=== PATIENT | female | born 1950 | race Caucasian/White ===

== ENCOUNTER → 2016-07-21 | Outpatient (CLI) | payer MEDICARE | LOC: COL.RAD 08:43 | DX: M54.5 Low back pain (principal) | CPT/HCPCS: J3301; Q9967 ==

== ENCOUNTER → 2016-08-11 | Outpatient (CLI) | payer MEDICARE | LOC: COL.RAD 07:58 | DX: M79.645 Pain in left finger(s) (principal); M18.9 Osteoarthritis of first carpometacarpal joint, unspecified | CPT/HCPCS: J3301; Q9967 ==

== ENCOUNTER → 2016-09-11 | Outpatient (CLI) | payer MEDICARE ==
[2016-09-11 16:38] LABS: HIV 1/2 Antibodies Non-Reactive; HIV-1p24 Antigen Non-Reactive
== END ==
LOC: COL.LAB 11:40
PROVIDERS: Orthopaedic Surgery
DX: Z01.812 Encounter for preprocedural laboratory examination (principal); M25.862 Other specified joint disorders, left knee

== ENCOUNTER → 2016-11-02 | Outpatient (CLI) | payer MEDICARE | LOC: COL.RAD 08:00 | DX: M79.652 Pain in left thigh (principal); M79.651 Pain in right thigh | CPT/HCPCS: J3301; Q9967 ==

== ENCOUNTER → 2016-12-11 | Outpatient (CLI) | payer MEDICARE | LOC: COL.RAD 11:30 | DX: M79.645 Pain in left finger(s) (principal) | CPT/HCPCS: J3301; Q9967 ==

== ENCOUNTER → 2016-12-14 | Outpatient (CLI) | payer MEDICARE | LOC: MC.RAD 10:39 | DX: Z12.31 Encounter for screening mammogram for malignant neoplasm of breast (principal) ==

== ENCOUNTER → 2017-03-18 | Outpatient (CLI) | payer MEDICARE | LOC: COL.RAD 10:47 | DX: M79.645 Pain in left finger(s) (principal); M79.651 Pain in right thigh | CPT/HCPCS: J3301; Q9967 ==

== ENCOUNTER → 2017-07-14 | Outpatient (CLI) | payer MEDICARE | LOC: COL.RAD 09:30 | DX: M79.645 Pain in left finger(s) (principal); M79.651 Pain in right thigh; M79.652 Pain in left thigh | CPT/HCPCS: J3301; Q9967 ==

== ENCOUNTER → 2017-11-08 | Outpatient (CLI) | payer MEDICARE | LOC: COL.RAD 10-26 11:30 | DX: M79.651 Pain in right thigh (principal) | CPT/HCPCS: J3301; Q9967 ==

== ENCOUNTER → 2018-02-22 | Outpatient (CLI) | payer MEDICARE | LOC: MC.RAD 11:20 | DX: Z12.31 Encounter for screening mammogram for malignant neoplasm of breast (principal) ==

== ENCOUNTER → 2018-03-02 | Outpatient (CLI) | payer MEDICARE | LOC: COL.RAD 07:55 | DX: M18.12 Unilateral primary osteoarthritis of first carpometacarpal joint, left hand (principal) | CPT/HCPCS: J3301; Q9967 ==

== ENCOUNTER 2018-03-18 11:44 | Emergency (ER) | payer MEDICARE ==
[~2018-03-18] VITALS: Ht 162.6 cm; Wt 111.4 kg
[2018-03-18 11:51] VITALS: BP 139/85; TEMP 97.4
[2018-03-18 12:07] LABS: BASO # 0.1 (0.0-0.2); BASO % 0.6 % (0.0-2.0); EOS # 0.3 (0.0-0.7); EOS % 3.2 % (0-4.0); GRAN # 6.3 (1.4-6.5); GRAN % 66.5 % (42.2-75.2); HEMATOCRIT 42.1 % (37.0-47.0); HEMOGLOBIN 13.9 g/dl (12.5-16.0); LYMPH # 1.9 (1.2-3.4); LYMPH % 20.5 % (20.0-51.0); MEAN CELL VOLUME 90 fl (80.0-100.0); MEAN CORPUSCULAR HEMOGLOBIN 30 pg (27.0-31.0); MEAN CORPUSCULAR HGB CONC 33 g/dl (33.0-37.0); MEAN PLATELET VOLUME 9.7 fl (7.4-10.4); MONO # 0.8 (0.1-0.6); MONO % 8.8 % (1.7-9.3); PLATELET COUNT 268 K/mm3 (130-400); RED BLOOD COUNT 4.69 M/mm3 (4.10-5.30); REDCELL DISTRIBUTION WIDTH-CV 13.5 % (11.5-14.5)
[2018-03-18 12:17] LABS: ALANINE AMINOTRANSFERASE 36 U/L (9-52); ALKALINE PHOSPHATASE 106 U/L (50-136); ANION GAP 9 mmol/L (7-16); AST,SGOT 22 U/L (15-37); BILIRUBIN,TOTAL 0.3 mg/dL (0.0-1.0); BLOOD UREA NITROGEN 22 mg/dL (7-17); CALCIUM 9.4 mg/dL (8.4-10.2); CARBON DIOXIDE 29 mmol/L (22-30); CHLORIDE 100 mmol/L (98-107); CREATININE, serum 0.61 mg/dL (0.52-1.25); GLUCOSE 92 mg/dL (74-106); INR 0.9 (0.8-3.0); PROTHROMBIN TIME 10.7 SECONDS (9.7-12.8); SODIUM 138 mmol/L (137-145); TOTAL PROTEIN 7.7 gm/dL (6.4-8.2)
[2018-03-18 12:20] LABS: PARTIAL THROMBOPLASTIN TIME 31.9 SECONDS (26.0-37.0)
[2018-03-18] MEDS ORDERED: SYNTHROID0.075 MG/T PO (12:20)
[2018-03-18 12:36] LABS: TROPONIN-I < 0.012 ng/mL (0.000-0.034)
[2018-03-18] MEDS ORDERED: CELEBREX400 MG PO (12:36)
[2018-03-18] MEDS ORDERED: GLUCOPHAGE XR500 M1 PO (12:36)
[2018-03-18] MEDS ORDERED: PROZAC40 MG PO (12:36)
[2018-03-18 14:21] VITALS: PULSE 77
== END 2018-03-18 14:21 | disposition home or self-care (01) ==
LOC: COL.ER 11:44
PROVIDERS: Family Medicine
DX: R07.89 Other chest pain (principal); E11.9 Type 2 diabetes mellitus without complications; I10 Essential (primary) hypertension; Z79.84 Long term (current) use of oral hypoglycemic drugs; Z87.891 Personal history of nicotine dependence

== ENCOUNTER → 2018-07-21 | Outpatient (REF) ==
[~2018-07-21] MED LIST: CELEBREX400 MG PO; GLUCOPHAGE XR500 M1 PO; PROZAC40 MG PO; SYNTHROID0.075 MG/T PO
[2018-07-21 14:22] LABS: HIV 1/2 Antibodies Non-Reactive; HIV-1p24 Antigen Non-Reactive
[2018-07-22 00:44] LABS: HEPATITIS B SURFACE ANTIBODY <2.0 (()); HEPATITIS B SURFACE ANTIGEN Negative (Negative); HEPATITIS C VIRUS ANTIBODY Negative (Negative)
== END ==
LOC: ZMSC 13:44
PROVIDERS: Orthopaedic Surgery
DX: Z01.89 Encounter for other specified special examinations (principal)

== ENCOUNTER → 2019-03-02 | Outpatient (CLI) | payer MEDICARE | LOC: MC.RAD 11:15 | DX: Z12.31 Encounter for screening mammogram for malignant neoplasm of breast (principal) ==

== ENCOUNTER 2021-04-03 19:20 | Emergency (ER) | payer MEDICARE ==
[~2021-04-03] VITALS: Ht 162.6 cm; Wt 110.5 kg
[2021-04-03 19:20] VITALS: TEMP 97.4
[2021-04-03 19:45] LABS: BASO # 0.1 K/mm3 (0.0-0.2); BASO % 0.9 % (0.0-2.0); EOS # 0.3 K/mm3 (0.0-0.7); EOS % 3.1 % (0-4.0); GRAN # 5.8 K/mm3 (1.4-6.5); GRAN % 62.2 % (42.2-75.2); HEMATOCRIT 38.7 % (37.0-47.0); HEMOGLOBIN 12.6 g/dl (12.5-16.0); LYMPH # 2.4 K/mm3 (1.2-3.4); LYMPH % 25.5 % (20.0-51.0); MEAN CELL VOLUME 93 fl (80.0-100.0); MEAN CORPUSCULAR HEMOGLOBIN 30 pg (27.0-31.0); MEAN CORPUSCULAR HGB CONC 33 g/dl (33.0-37.0); MEAN PLATELET VOLUME 10.4 fl (7.4-10.4); MONO # 0.7 K/mm3 (0.1-0.6); MONO % 7.9 % (1.7-9.3); PLATELET COUNT 262 K/mm3 (130-400); RED BLOOD COUNT 4.15 M/mm3 (4.10-5.30); REDCELL DISTRIBUTION WIDTH-CV 13.3 % (11.5-14.5)
[2021-04-03 20:11] LABS: ALANINE AMINOTRANSFERASE 15 U/L (0-55); ALBUMIN 3.5 gm/dL (3.4-4.8); ALKALINE PHOSPHATASE 86 U/L (0-750); ANION GAP 12 mmol/L (7-16); AST,SGOT 16 U/L (5-34); BILIRUBIN,TOTAL 0.2 mg/dL (0.2-1.2); BLOOD UREA NITROGEN 22 mg/dL (10-20); CALCIUM 9.3 mg/dL (8.4-10.2); CARBON DIOXIDE 25 mmol/L (23-31); CHLORIDE 105 mmol/L (98-107); CREATININE, serum 0.69 mg/dL (0.57-1.11); GLUCOSE 123 mg/dL (70-99); SODIUM 142 mmol/L (136-145); TOTAL PROTEIN 7.1 gm/dL (6.2-8.1)
[2021-04-03 20:21] LABS: TROPONIN-I < 0.010 ng/mL (0.00-0.033)
[2021-04-03] MEDS ORDERED: ZOFRAN ODT4 MG PO (20:40)
[2021-04-03] MEDS ORDERED: ANTIVERT 25MG25 MG PO (20:40)
[2021-04-03 21:07] VITALS: BP 125/76; PULSE 84
== END 2021-04-03 21:14 | disposition home or self-care (01) ==
LOC: COL.ER 19:20
PROVIDERS: Emergency Medicine
DX: R42 Dizziness and giddiness (principal); E03.9 Hypothyroidism, unspecified; Z79.890 Hormone replacement therapy
CPT/HCPCS: J2550; J7030

== ENCOUNTER → 2021-12-02 | Outpatient (CLI) | payer MEDICARE ==
[~2021-12-02] MED LIST changes: +ANTIVERT 25MG25 MG PO; +ZOFRAN ODT4 MG PO
== END ==
LOC: COL.RAD 11:55
DX: G31.9 Degenerative disease of nervous system, unspecified (principal)

== ENCOUNTER → 2021-12-17 | Outpatient (CLI) | payer MEDICARE | LOC: COL.RAD 13:30 | DX: M25.552 Pain in left hip (principal) | CPT/HCPCS: J3301; Q9967 ==

== ENCOUNTER → 2022-03-11 | Outpatient (CLI) | payer MEDICARE | LOC: COL.RAD 10:24 | DX: M25.552 Pain in left hip (principal) | CPT/HCPCS: J3301; Q9967 ==

== ENCOUNTER → 2022-11-04 | Outpatient (CLI) | payer MEDICARE ==
[~2022-11-04] MED LIST changes: +ASPIRIN 32325 MG/TAB PO; +BENTYL 10MG10 MG/CAP PO; +CEPHALEXIN500 M1 PO; +COLACE 100100 MG/CAP PO; +CYMBALTA 60MG60 MG PO; +DURICEF 500MG500 MG PO; +MOBIC15 MG PO; +NORCO 325 MG-51 TAB PO; +PRINIVIL10 MG PO; +SENOKOT S 50 MG1 TAB PO; +TYLENOL 500MG500 MG PO; +TYLENOL 8 HR PO; +ULTRAM ER100 MG PO; +VANCOMYCIN 11 G/VIA1 IV; +WELLBUTRIN XL150 MG PO; +ZOFRAN 4MG T4 MG/TAB PO; +ZYRTEC 10MG10 MG PO
[2022-11-04 12:59] LABS: HEMOGLOBIN 10.9 g/dl (12.5-16.0); MEAN CELL VOLUME 92 fl (80.0-100.0); MEAN CORPUSCULAR HEMOGLOBIN 31 pg (27-31); MEAN CORPUSCULAR HGB CONC 33 g/dl (33.0-37.0); MEAN PLATELET VOLUME 8.7 fl (7.4-10.4); PLATELET COUNT 611 K/mm3 (130-400); RED BLOOD COUNT 3.55 M/mm3 (4.10-5.30); REDCELL DISTRIBUTION WIDTH-CV 13.8 % (11.5-14.5)
[2022-11-04 13:07] LABS: HEMATOCRIT 32.8 % (37.0-47.0)
[2022-11-04 13:22] LABS: EOSINOPHIL 3 % (0-4); LYMPHOCYTE 30 % (20.0-51.0); NEUTROPHILS 61 % (42.0-75.2)
[2022-11-04 13:23] LABS: PLATELET ESTIMATE INCREASED (NORMAL)
[2022-11-04 13:54] LABS: ERYTHROCYTE SEDIMENTATION RATE > 140 mm/hr (0-30)
== END ==
LOC: COL.LAB 12:22
PROVIDERS: Orthopaedic Surgery Sports Medicine
DX: Z11.9 Encounter for screening for infectious and parasitic diseases, unspecified (principal)

== ENCOUNTER 2022-11-10 09:44 | Inpatient (IN) | payer MEDICARE ==
[~2022-11-10] VITALS: Ht 162.6 cm; Wt 104.6 kg
--- NOTE | 2022-11-10 09:49 | NUR ---
New pt arriving from surgical unit. She is a/o x 4. Left hip bulky dressing is CDI. Pt has PICC line in RUE that is flushing well with noted blood return. All other skin is intact. Orientation provided to unit/room. Call light is in her reach. Bed alarm is on.
--- NOTE | 2022-11-10 11:46 | NUR ---
Call placed to [facility] re: left hip dressing change orders. Awaiting callback.
--- NOTE | 2022-11-10 15:31 | NUR ---
Pt lying supine in bed w/ HOB elevated approx 45 degrees. LLE elevated on pillow with ice pack over hip incision. Pt reporting pain level 4/10. Too soon for next dose of PRN oxycodone. Tylenol given per PRN order. Call back received from Florentin Burnett ([facility]) - okay to remove bulky dressing, replace xeroform over tammie, okay to apply 4x4's to absorb any drainage. Okay to change every 3 days or PRN drainage.
--- NOTE | 2022-11-10 15:52 | NUR ---
Dressing change completed. Scant amt of serosaing drainage noted on 4x4's removed from incision. Incision well-approximated w/ sutures and was w/o redness or active drainage.
--- NOTE | 2022-11-10 16:37 | NUR ---
Has lack of transportation kept you from medical appts, meetings, work, or from getting things needed for daily living? YES-MEDICAL APPTS How often do you feel lonely or isolated from those around you? SOMETIMES Over the past 5 days, how much of the time has pain made it hard for you to sleep? OCCASIONALLY Over the past 5 days, how often have you limited your participation in therapy due to pain? FREQUENTLY Over the past 5 days, how often have you limited your day-to-day activities because of pain? OCCASIONALLY Have you had 2 or more falls in the past year or any fall with an injury? YES Did you have major surgery during the 100 days prior to admission? YES
[2022-11-10 16:57] VITALS: BP 137/61; PULSE 96; TEMP 98.2
[2022-11-10 17:02] VITALS: BP_SYST 137
[2022-11-10 21:00] VITALS: BP_SYST 137
[2022-11-11] VITALS (8 sets, daily range): BP systolic 136–149; BP diastolic 45–61; PULSE 98–99; TEMP 98.2–99.1
[2022-11-11 07:25] LABS: BASO % 0.4 % (0.0-2.0); EOS # 0.3 K/mm3 (0.0-0.7); EOS % 2.8 % (0.0-4.0); GRAN # 6.7 K/mm3 (1.4-6.5); GRAN % 72.1 % (42.2-75.2); LYMPH # 1.5 K/mm3 (1.2-3.4); MEAN CELL VOLUME 96 fl (80.0-100.0); MEAN CORPUSCULAR HGB CONC 32 g/dl (33.0-37.0); MONO # 0.8 K/mm3 (0.1-0.6); PLATELET COUNT 473 K/mm3 (130-400); RED BLOOD COUNT 2.69 M/mm3 (4.10-5.30); REDCELL DISTRIBUTION WIDTH-CV 14.4 % (11.5-14.5)
[2022-11-11 07:26] LABS: HEMATOCRIT 25.9 % (37.0-47.0); HEMOGLOBIN 8.2 g/dl (12.5-16.0); MEAN CORPUSCULAR HEMOGLOBIN 30 pg (27-31)
[2022-11-11 07:34] LABS: C-REACTIVE PROTEIN 8.72 mg/dL (0.00-0.50); CREATININE, serum 0.62 mg/dL (0.57-1.11); POTASSIUM 3.9 mmol/L (3.5-4.5)
--- NOTE | 2022-11-11 10:19 | NUR ---
Initial visit: Patient thanked Reimbursement Liaison for looking in on her and offering spiritual care. Patient said if Reimbursement Liaison prayed for her she would cry so instead asked that Reimbursement Liaison keep her in her prayers. Reimbursement Liaison will do so.
--- NOTE | 2022-11-11 13:04 | NUR ---
Patient new admit to IPR unit. Patient presented with MCR.IM form. Education provided and patient verbalizes her understanding. Patients signed original placed in the patients chart and copy provided back to the patient. SW welcomed patient to IPR unit and completed intake. Patient was admitted from this facility following hip surgery. Patient lives at home alone with her two cats in [place]. Prior to hospitalization, she has been fully independent with her ADL's and IADL's and has been able to drive independently. Her home is a single level home without a basement which she owns. She has no steps to get into the home and there are no steps within the home. Patients bathroom in a tub/shower combo, and she does have grab bars installed. He toilet is ADA. Prior to surgery she would utilize a cane to assist with mobility and a walker PRN. She has no home oxygen needs. She has all of her natural teeth, does not utilize hearing aids but does utilizes glasses. She has a history of smoking "long ago" and denies any alcohol or recreations drug use. PCP is Dr. Khan and she utilizes [facility] for prescriptions. Per previous records, patient does have a DPOA-HC established listing her son Bobby Thompson ([phone]) and her other son Ronnie.
--- NOTE | 2022-11-11 20:20 | NUR ---
PT SITTING IN BED. ASSISTED TO BR WITH WALKER. PT ABLE TO LIFT LEGS IN AND OUT OF BED. SCD ON AT THIS TIME. SEE MAR FOR TYLENOL GIVEN FOR LEVEL 6 LT HIP PAIN. TOO SOON FOR ROXICODONE. ICE PACK TO LT HIP. NO OBVIOUS DRG THROUGH BULKY DRSG. CALL LIGHT IN REACH. BED ALARM SET.
--- NOTE | 2022-11-12 01:10 | NUR ---
BED ALARM SOUNDING. PT TRYING TO GET UP ON OWN. ASSISTED TO BR WITH WALKER. REMINDED NOT TO GET UP ON OWN. USE CALL LIGHT.
--- NOTE | 2022-11-12 01:30 | NUR ---
BACK TO BED. MOD AMT SEROUS SANGINOUS DRSG FROM DISTANT END OF LT HIP INCISION. CHANGED DRSG AT THIS TIME. LT HIP VERY EDEAMTOUS. LT HIP INCISION SUTURED AND EDEMATOUS.
--- NOTE | 2022-11-12 04:45 | NUR ---
LT HIP DRSG SATURATED AT DISTAL END. CHANGED DRSG W/ 4X4 GAUZE, ABD X2, FAOM TAPE. SEE MAR FOR PAIN MED GIVEN. LEVEL 6/10 PAIN. REFUSED ICE PACK. PT WANTED SCD'S OFF.
[2022-11-12 05:29] VITALS: BP 139/50; PULSE 98; TEMP 98.7
[2022-11-12 07:02] VITALS: BP_SYST 139
--- NOTE | 2022-11-12 07:03 | NUR ---
Shift report received from household appliance installer RN. Pt awake and resting supine in bed. Swelling noted to right hand. Pt has RUE PICC w/o sx of infiltration. PICC flushing well and has noted blood return. Encouraged pt to elevated right hand on pillow x 1. Will continue to monitor. Call light in reach. Bed alarm is on.
--- NOTE | 2022-11-12 10:13 | NUR ---
Pt requesting a left hip dressing change. Dressing removed and noted to be saturated with serosaing drainage. Active thin, clear, serosaing fluid leaking from distal end of incision. Sutures are intact. Incision is swollen, nontender, w/o redness. No purulent drainage noted. Xeroform, gauze 4x4, and foam tape placed over incision. Supervision provided as pt independently performed upper and lower body dressing. Denies pain. Will escort pt to Group Therapy once dressed.
--- NOTE | 2022-11-12 10:23 | NUR ---
Pt is off the unit for Group Therapy.
--- NOTE | 2022-11-12 12:35 | NUR ---
Pt reporting that her incision is leaking. Pt's jeans noted to have a spot of drainage on them. Dressing changed. Abd pad applied to help control drainage. Will continue to monitor.
--- NOTE | 2022-11-12 16:35 | NUR ---
Initial dose of Eliquis 10mg given at approx 1600 today. Pt given Eliquis handout from [employer]. Side effects and purpose of medication reviewed. She had no further questions.
[2022-11-12 17:20] VITALS: BP 120/58; PULSE 94; TEMP 98.9
--- NOTE | 2022-11-12 19:20 | NUR ---
RECEIVED CHANGE OF SHIFT REPORT FROM DAY SHIFT RN.
[2022-11-12 20:56] VITALS: BP 136/44
--- NOTE | 2022-11-13 03:22 | NUR ---
CHANGED DRSG TO L HIP PER DR. WATSON, OBSERVED SEROUS SANGINUOUS DRAINAGE OOZING FROM DISTAL ENDOF L HIP INCISION, WITH SUTURES INTACT/XEROFORM STRIP TO INCISION FOR PROTECTION PER D.O. SOME REDNESS TO DISTAL HALF OF INCISION AND SURROUNDING TISSUE AND SOME WARMTH TO TOUCH TO SKIN SURFACE.
[2022-11-13 05:42] VITALS: BP 141/58; PULSE 93; TEMP 98.5
--- NOTE | 2022-11-13 07:19 | NUR ---
CHANGE OF SHIFT REPORT GIVEN TO DAY SHIFT RNOSVALDO.
--- NOTE | 2022-11-13 07:20 | NUR ---
OFFERED PATIENT PATIENT PAIN MEDICATIONS PRIOR TO THERAPY, PATIENT REFUSED.
--- NOTE | 2022-11-13 08:00 | NUR ---
PATIENT TAKEN TO REHAB ROOM BY PT.
--- NOTE | 2022-11-13 09:30 | NUR ---
DRESSING CHANGED TO L IHP INSISION. [facility], CHANGING DRESSING Q SHIFT FOR DRAINAGE IS NORMAL AT THIS TIME. WILL CONT TO MONITOR.
[2022-11-13 10:02] VITALS: BP 142/59; PULSE 99
--- NOTE | 2022-11-13 10:16 | NUR ---
PATIENT LEFT WITH OT.
--- NOTE | 2022-11-13 10:21 | NUR ---
DR CANO NOTIFED BY IPR OILER AND GREASER OF PATIENTS FALL, ,(SHE WAS ON UNIT AT THE TIME.) DR CANO WILL SEE PATIENT AFTER HIS CLINIC ROUNDS.
--- NOTE | 2022-11-13 10:48 | NUR ---
PATIENT AWAKE AND ALERT, RESTING IN BED. PATIENT DENIES ANY COMPLAINTS OR PAIN AT THIS TIME. BED ALARM ON, CALL LIGHT WTIHIN REACH.
--- NOTE | 2022-11-13 12:32 | NUR ---
(late entry 11/12) SW presented patient with team conference notes. SW reviewed notes with patient. All questions answered.
--- NOTE | 2022-11-13 13:29 | NUR ---
Admission QIM scores were reviewed by the team. Code of 4 chosen for oral hygiene was determined by team discussion to be the most usual performance before interventions for this patient during the assessment period. Code of 4 chosen for toileting hygiene was determined by team discussion to be the most usual performance before interventions for this patient during the assessment period. Code of 4 chosen for toilet transfers was determined by team discussion to be the most usual performance before interventions for this patient during the assessment period. Code of 4 chosen for shower/bathe self was determined by team discussion to be the most usual performance before interventions for this patient during the assessment period. Code of 5 chosen for upper body dressing was determined by team discussion to be the most usual performance before interventions for this patient during the assessment period. Code of 4 chosen for lower body dressing was determined by team discussion to be the most usual performance before interventions for this patient during the assessment period. Code of 4 chosen for putting on/taking off footwear was determined by team discussion to be the most usual performance before interventions for this patient during the assessment period. Code of 88 chosen for rolling left to right was determined by team discussion to be the most usual performance before interventions for this patient during the assessment period. Code of 3 chosen for sit to lying was determined by team discussion to be the most usual performance before interventions for this patient during the assessment period. Code of 4 chosen for lying to sitting side of bed was determined by team discussion to be the most usual performance before interventions for this patient during the assessment period. Code of 6 chosen for sit to stand was determined by team discussion to be the most usual performance for this patient during the discharge assessment period. Code of 4 chosen for walk 10 feet was determined by team discussion to be the most usual performance for this patient during the discharge assessment period. Code of 88 chosen for walking 150 feet was determined by team discussion to be the most usual performance before interventions for this patient during the assessment period.
--- NOTE | 2022-11-13 16:42 | NUR ---
DRESSING APPLID TO R HIP ABRASIAN THAT PATIENT AQUIRED EARLIER THIS EVENING D/T A FALL THIS AM. PATIENT IS CURRENTLY RESTING IN BED, BED ALARM ON, CALL LIGHT WTIHIN REACH.
[2022-11-13 17:09] VITALS: BP 140/55; PULSE 94; TEMP 97.6
[2022-11-13 19:10] VITALS: BP_SYST 140
[2022-11-13 20:29] VITALS: BP 127/55
[2022-11-14 04:25] VITALS: BP 134/67; PULSE 96; TEMP 98
--- NOTE | 2022-11-14 05:00 | NUR ---
ASSESSMENT COMPLETE FOR VB DEVELOPER. PT COMPLAINED OF LEFT OUTTER HIP/THIGH PAIN. PT GIVEN ROXICODONE FOR PAIN. PT FELT PAIN MEDICATION WAS EFFECT. PT DENIED CHEST PAIN, PALPITATIONS, SOB, N,V,D OR DIZZINESS. TWO DRESSING CHANGES DONE TO LEFT HIP, DUE TO SUBSTANTIAL DRAINAGE. FALL PRECAUTIONS IN PLACE. BED ALARM ON. CALL LIGHT WITHIN REACH.
--- NOTE | 2022-11-14 07:05 | NUR ---
Shift report received from shift supervisor rn RN. Pt awake and resting supine in bed. Denies pain or discomfort. RUE PICC flushed w/out difficulty and had blood return. She denies other needs. Call light in reach. Bed alarm is on.
[2022-11-14 07:08] VITALS: BP_SYST 134
[2022-11-14 07:14] LABS: BASO # 0.1 K/mm3 (0.0-0.2); BASO % 0.7 % (0.0-2.0); EOS # 0.3 K/mm3 (0.0-0.7); EOS % 2.7 % (0.0-4.0); GRAN # 6.3 K/mm3 (1.4-6.5); GRAN % 68.5 % (42.2-75.2); LYMPH # 1.5 K/mm3 (1.2-3.4); LYMPH % 16.6 % (20.0-51.0); MEAN CELL VOLUME 94 fl (80.0-100.0); MEAN CORPUSCULAR HGB CONC 32 g/dl (33.0-37.0); MEAN PLATELET VOLUME 9.3 fl (7.4-10.4); MONO % 11.1 % (1.7-9.3); PLATELET COUNT 451 K/mm3 (130-400); RED BLOOD COUNT 2.52 M/mm3 (4.10-5.30); REDCELL DISTRIBUTION WIDTH-CV 14.5 % (11.5-14.5)
[2022-11-14 07:15] LABS: HEMATOCRIT 23.8 % (37.0-47.0); HEMOGLOBIN 7.5 g/dl (12.5-16.0); MEAN CORPUSCULAR HEMOGLOBIN 30 pg (27-31)
[2022-11-14 07:28] LABS: CALCIUM 8.8 mg/dL (8.4-10.2); CREATININE, serum 0.62 mg/dL (0.57-1.11); POTASSIUM 3.7 mmol/L (3.5-4.5)
--- NOTE | 2022-11-14 07:56 | NUR ---
Pt sitting up in bed to eat breakfast independently. Rt. hand swelling remains but pt reports this is improved over the last few days. Pt denies the need for pain medication at this time but would like pain medication before Group Therapy this morning. Call light is in her reach. Bed alarm is on.
--- NOTE | 2022-11-14 10:16 | NUR ---
Pt is off the unit for Group Therapy.
--- NOTE | 2022-11-14 13:23 | NUR ---
Min asst provided as pt stood up from bed & ambulated to the bathroom using a FWW. Pt reporting left hip pain at 8/10. Scheduled gabapentin & PRN Oxycodone given. Dressing to left hip is CDI at this time. Min asst provided after toileting to move BLE's onto bed. Pt denies other needs. Call light is in her reach. Bed alarm is on.
[2022-11-14 16:45] VITALS: BP 135/58; PULSE 93; TEMP 98.7
[2022-11-14 19:20] VITALS: BP 123/50; PULSE 97; TEMP 98.5
[2022-11-15 05:34] VITALS: BP 141/64; PULSE 93; TEMP 97
[2022-11-15 06:55] VITALS: BP_SYST 141
--- NOTE | 2022-11-15 06:56 | NUR ---
Shift report received from shift lab technician RN. Pt awake and lying supine in bed. IV Vanc infusing to RUE PICC w/o sx of infiltration. Pt denies pain/discomfort. Denies other needs. Call light in reach. Bed alarm is on.
--- NOTE | 2022-11-15 10:47 | NUR ---
Pt supervised as she completed upper/lower body dressing independently. Dsg change to left hip incision completed. Abd pad & 4x4 gauze saturated w/ serous drainage. Pt requesting pain medication. Oxycodone given per PRN order. Pt back to bed & is lying supine. She denies additional needs. Call light is in her reach. Bed alarm is on.
--- NOTE | 2022-11-15 11:22 | NUR ---
Refrigeration Mechanic rounds: Refrigeration Mechanic visit offered. Patient declined because she wants to sleep.
--- NOTE | 2022-11-15 13:49 | NUR ---
Left hip dressing saturated through abd pads/gauze dressing over incision. Pants and chux pad on bed visibly soiled with drainage. Dressing change completed.
[2022-11-15 18:11] VITALS: BP 130/70; PULSE 71; TEMP 97.9
--- NOTE | 2022-11-15 19:02 | NUR ---
RECEIVED CHANGE OF SHIFT REPORT FROM DAY SHIFT RN. PATIENT RESTING IN BED DURING REPORT WITH NO NEEDS REPORTED. EXIT ALARM ON, CALL LIGHT IN REACH.
[2022-11-15 20:30] VITALS: BP 143/44
--- NOTE | 2022-11-15 22:58 | NUR ---
PATIENT SLEEPING, DOES NOT WAKE DURING NURSING ROUNDS. EXIT ALARM ON, CALL LIGHT IN REACH. RESPIRATIONS NONLABORED AND EVEN.
--- NOTE | 2022-11-16 01:05 | NUR ---
REFUSED OFFER OF PAIN MEDS IF NEEDED AFTER BACK IN BED. NO OTHER NEEDS AT THIS TIME.
[2022-11-16 05:03] VITALS: BP 121/47; PULSE 89; TEMP 97.3
[2022-11-16 07:00] VITALS: BP_SYST 121
--- NOTE | 2022-11-16 07:29 | NUR ---
CHANGE OF SHIFT REPORT GIVEN TO DAY SHIFT RNEPIFANIO.
[2022-11-16 07:38] LABS: BASO % 0.4 % (0.0-2.0); EOS # 0.3 K/mm3 (0.0-0.7); EOS % 3.9 % (0.0-4.0); GRAN # 4.9 K/mm3 (1.4-6.5); LYMPH # 0.9 K/mm3 (1.2-3.4); LYMPH % 12.8 % (20.0-51.0); MEAN CELL VOLUME 97 fl (80.0-100.0); MEAN CORPUSCULAR HGB CONC 31 g/dl (33.0-37.0); MONO # 1.1 K/mm3 (0.1-0.6); MONO % 14.5 % (1.7-9.3); PLATELET COUNT 392 K/mm3 (130-400); RED BLOOD COUNT 2.43 M/mm3 (4.10-5.30); REDCELL DISTRIBUTION WIDTH-CV 14.6 % (11.5-14.5)
[2022-11-16 07:49] LABS: HEMATOCRIT 23.5 % (37.0-47.0); HEMOGLOBIN 7.2 g/dl (12.5-16.0); MEAN CORPUSCULAR HEMOGLOBIN 30 pg (27-31)
[2022-11-16 07:51] LABS: C-REACTIVE PROTEIN 11.99 mg/dL (0.00-0.50); CALCIUM 8.7 mg/dL (8.4-10.2); CREATININE, serum 0.62 mg/dL (0.57-1.11); POTASSIUM 3.6 mmol/L (3.5-4.5)
--- NOTE | 2022-11-16 08:00 | NUR ---
PATIENT IS A&O, PATIENT REPORTS WAKING UP FEELING A LITTLE TURNED AROUND STATING SHE FORGOT SHE WAS IN THE HOSPITAL. PATIENT REORIENTED EASILY. VSS. C/O MOD DISCOMFORT IN LEFT HIP WITH ACTIVITY. GAVE PRN ROXICODONE WITH AM MEDS, SEE AUG. LEFT HIP HAS BEEN DRAINING A LOT, REPORTED BY SURGICAL CLINICAL REVIEWER. LEFT HIP SATURATED, CHANGED DSG AND APPLIED 4X4'S, ABD & OCCLUSIVE TAPE BEFORE THERAPIES. HEAD TO TOE ASSESSMENT COMPLETE. PATIENT ASSISTED TO BATHROOM AND TO GET DRESSED BY NURSING. PT NOW AT BEDSIDE TAKING OVER. SEE PT NOTES.
[2022-11-16 08:54] LABS: ERYTHROCYTE SEDIMENTATION RATE > 140 mm/hr (0-30)
--- NOTE | 2022-11-16 15:35 | NUR ---
Telehealth visit conducted with Dr. Jordan White, Infectious Disease. Patient consented to visit. Telecommunication initiated without any difficulties during exam. All questions were answered by Dr. White
--- NOTE | 2022-11-16 15:54 | NUR ---
Yvonne, [facility] Director, notified HERNANDEZ that the patient is interested in private duty caregivers when she returns home. HERNANDEZ met with the patient to follow up after the weekend. The patient states that she is doing well and that it was nice to have a slower weekend. HERNANDEZ addressed the private duty caregivers and provided her with a list of local agencies that provide those services. The patient plans to contact the different agencies for pricing and availability. She confirms she still wants to utilize [facility] for the traditional home health.
[2022-11-16 17:39] VITALS: BP 103/71; PULSE 98; TEMP 99.2
[2022-11-16 19:00] VITALS: BP_SYST 103
--- NOTE | 2022-11-16 23:53 | NUR ---
PT REPORTS HAVING A STRANGE HALLUCINATIONS LAST NIGHT AFTER HAVING TAKEN A DOSE OF ROXICODONE. PT REQUESTING PRN TRAMADOL INSTEAD OF ROXICODONE. HOSPITALIST WATCH CRYSTAL CUTTER CONTACTED FOR ORDER FOR TRAMADOL. ORDER RECEIVED.
[2022-11-17 05:23] VITALS: BP 137/55; PULSE 95; TEMP 97.9
[2022-11-17 07:04] VITALS: BP_SYST 137
--- NOTE | 2022-11-17 10:31 | NUR ---
PATIENT ALERT AND ORIENTED X4. PICC LINE TO RIGHT UPPER ARM. DRESSING CHANGED TO LEFT HIP THIS MORNING. SOME DRAINAGE NOTED. PRN TRAMADOL GIVEN FOR PAIN. NO NEW CONCERNS. WORKING WELL WITH THERAPY.
--- NOTE | 2022-11-17 17:26 | NUR ---
contacted ortho on the drainage from the dressings. expressed concerns about having to change the dressing more often. dr Otto nurse said to change dressing as needed and someone from the office will come see the patient tomorrow.
[2022-11-17 17:27] VITALS: BP 112/50; PULSE 91; TEMP 98.4
[2022-11-17 19:00] VITALS: BP_SYST 112
--- NOTE | 2022-11-17 19:30 | NUR ---
Patient assisted to toilet with SBA, tolerated well. She is alert and oriented. Reports mild pain and requests PRN tylenol with evening medications. Assited back to bed. Safety precautions in place. Call light within reach.
[2022-11-17 21:11] LABS: BASO % 0.2 % (0.0-2.0); EOS # 0.3 K/mm3 (0.0-0.7); EOS % 4.7 % (0.0-4.0); GRAN # 3.8 K/mm3 (1.4-6.5); GRAN % 65.9 % (42.2-75.2); LYMPH # 0.8 K/mm3 (1.2-3.4); LYMPH % 13.6 % (20.0-51.0); MEAN CORPUSCULAR HGB CONC 32 g/dl (33.0-37.0); MEAN PLATELET VOLUME 9.1 fl (7.4-10.4); MONO # 0.9 K/mm3 (0.1-0.6); MONO % 15.3 % (1.7-9.3); PLATELET COUNT 353 K/mm3 (130-400); RED BLOOD COUNT 2.47 M/mm3 (4.10-5.30); REDCELL DISTRIBUTION WIDTH-CV 14.2 % (11.5-14.5)
[2022-11-17 21:49] LABS: HEMATOCRIT 22.8 % (37.0-47.0); HEMOGLOBIN 7.3 g/dl (12.5-16.0); MEAN CELL VOLUME 92 fl (80.0-100.0); MEAN CORPUSCULAR HEMOGLOBIN 30 pg (27-31)
[2022-11-18 05:00] VITALS: BP 140/62; PULSE 90; TEMP 97.6
[2022-11-18 06:47] VITALS: BP_SYST 140
--- NOTE | 2022-11-18 06:48 | NUR ---
Shift report received from restaurant shift leader RN. Pt is awake and sitting up in bed. She denies pain/discomfort. L hip dressing is CDI. She denies other needs. Call light is in her reach. Bed alarm is on.
--- NOTE | 2022-11-18 07:56 | NUR ---
Ortho here to see pt this morning. Order placed for nutritional consult to determine the need for a supplement to aid in wound/incision healing. Nutrition consult was already placed upon IPR admission and nutritional supplement already ordered. Attempted to reach PETER Ramirez. No answer and no option to leave a voice mail. Will reattempt contact w/ the PETER.
--- NOTE | 2022-11-18 11:02 | NUR ---
Pt sitting up in bed reading her mail. Pt reports that she feels more confident about discharging next week. Pt informed that pain medication changed from Tramadol back to Oxycodone as she requested. Pt felt that Tramadol made her feel "foggy". Pt denies the need for pain medication at this time. She will request it closer to her next PT session. She denies other needs. Call light is in her reach. Bed alarm is on.
--- NOTE | 2022-11-18 11:20 | NUR ---
Left hip dressing was changed by Ortho this morning. Dressing remains CDI.
--- NOTE | 2022-11-18 11:36 | NUR ---
Pt fell last week and hit her right side of abdomen. Bruising remains. Pt informed nurse of a "hard lump" beneath the bruising. Hospitalist JOANN on unit to round; PA informed.
--- NOTE | 2022-11-18 14:21 | NUR ---
A patient meeting with the team was scheduled for this morning. HERNANDEZ attended the last half of the meeting. IPR Director, Dr. Calix, PT, OT, and ST were also present. The team went around and discussed the patient's progess so far. The team has set a discharge for next Wednesday, 11/24, with home health PT/OT/SN. The patient is also going to be needing 6 weeks of IV antibiotics. Tentatively IV Vanc and Rocephin. The patient is in agreeable to the discharge date. She would like to find out how much it would cost to do the IV antibiotics at home. If too expensive, she would be interested in looking at receiving them in the [facility]. HERNANDEZ attempted to contact [facility]. HERNANDEZ left the event representative a voicemail and faxed over the patient's information. HERNANDEZ notified Ham at [facility] of the discharge date. HERNANDEZ followed up with the patient this afternoon to present and review the IPR Team Conference Note. The patient is in agreement to the plan. She had no further questions for HERNANDEZ at this time.
[2022-11-18 17:02] VITALS: BP 148/64; PULSE 105; TEMP 98.5
--- NOTE | 2022-11-18 18:39 | NUR ---
RECEIVED CHANGE OF SHIFT REPORT FROM DAY SHIFT RN.
[2022-11-18 20:39] VITALS: BP 142/58
--- NOTE | 2022-11-19 01:02 | NUR ---
Patient sleeping, does not wake during nursing rounds. Breathing nonlabored and even. Patient reported feeling improvement in her ability to ambulate compared to last week. PICC line continues to RUE for continued IV antibiotics. Exit alarms continues when up in chair or in bed with call light in reach.
[2022-11-19 04:59] VITALS: BP 160/60; PULSE 88; TEMP 98.8
--- NOTE | 2022-11-19 05:03 | NUR ---
Patient reported not being in the same room she was in compared to yesterday but she acknowledges that she is still in the hospital. Patient answers orientation questions appropriately but insists that she is not in the same room from yesterday. Speech is clear, no slurring observed, no facial drooping observed, equal strength observed to wale extremities, follows commands well at this time. Reports she remembers this nurse from yesterday evening.
--- NOTE | 2022-11-19 06:36 | NUR ---
Change of shift report given to day shift RNTrish.
[2022-11-19 06:48] VITALS: BP_SYST 160
--- NOTE | 2022-11-19 06:49 | NUR ---
Shift report received from shiftman RN. Pt awake and is concerned about her mental status. Pt stated "I'm confused. I asked Deyanira if this is the same room I've been in" and "I dont' know what's wrong with me". Pt stating that she does not feel confused currently but is wondering if the Tramadol is having any lingering effects. Reminded pt that Tramadol was discontinued yesterday upon her request. Pt denies pain/discomfort. Pt is a/o x 4 at this time. Speech is clear. She denies other needs. Call light is in her reach. Bed alarm is on.
[2022-11-19 07:01] LABS: BASO % 0.3 % (0.0-2.0); EOS # 0.2 K/mm3 (0.0-0.7); EOS % 3.6 % (0.0-4.0); GRAN # 4.4 K/mm3 (1.4-6.5); GRAN % 70.1 % (42.2-75.2); LYMPH # 0.8 K/mm3 (1.2-3.4); LYMPH % 12.9 % (20.0-51.0); MEAN CELL VOLUME 93 fl (80.0-100.0); MEAN CORPUSCULAR HGB CONC 32 g/dl (33.0-37.0); MEAN PLATELET VOLUME 9.4 fl (7.4-10.4); MONO # 0.8 K/mm3 (0.1-0.6); MONO % 12.5 % (1.7-9.3); PLATELET COUNT 376 K/mm3 (130-400); RED BLOOD COUNT 2.58 M/mm3 (4.10-5.30); REDCELL DISTRIBUTION WIDTH-CV 14.6 % (11.5-14.5)
[2022-11-19 07:07] LABS: HEMATOCRIT 24.1 % (37.0-47.0); HEMOGLOBIN 7.6 g/dl (12.5-16.0); MEAN CORPUSCULAR HEMOGLOBIN 29 pg (27-31)
[2022-11-19 08:30] VITALS: BP_SYST 120
--- NOTE | 2022-11-19 09:28 | NUR ---
Pt sitting up in bed. Initial dose of IV Maxipime given per order. Discussed new abx w/ pt & Lexicomp handout given. She had no further questions. Oxycodone given per PRN order for Lt. hip pain. Bulky dressing to Lt. hip is CDI. RUE PICC flushed easily & had blood return. Pt denies other needs. Call light in reach. Bed alarm on.
--- NOTE | 2022-11-19 09:57 | NUR ---
Visited w/ pt & provided support & education on relaxation techniques. Had her practice deep breathing & explained benefits of using. Encouraged her to use this when she has increased anxiety w/ the therapists. We also discussed music & imagery. Inquired about the source of her anxiety & feels it is mostly related to feeling isolated. Let her talk about COVID & not being able to see her family or close friends & then when COVID restrictions lifted is when she started having issues w/ her hip, which limited her functioning. Pt has attempted to see several counselors in the past but don't feel they really helped as after several months she did not get feedback on what she needed to do to help improve. Will continue to see pt daily while on unit to assist w/ reducing her anxiety w/ techniques & conversation.
--- NOTE | 2022-11-19 10:37 | NUR ---
Pt is off the unit for Group Therapy.
--- NOTE | 2022-11-19 11:52 | NUR ---
Pt back in bed after Group Therapy working on bed exercises. Pt rating left hip pain at 7/10. Too soon for next dose of Roxicodone. Tylenol given per PRN order. Pt denies other needs. Call light in reach. Bed alarm is on.
--- NOTE | 2022-11-19 14:20 | NUR ---
Amanda, at [facility], reports that she ran the patient's benefits and she would have an [id number] cost, due to still being in the middle of her donut hole. The Vanc would be $108 a week and the Rocephin would be $204 a week. Supplies would be $25 a day. [facility] would require the first week payment up front, which would be $312.80 and then the patient could do a payment plan with them. HERNANDEZ met with the patient to update on the above and the option of receiving the antibiotics in the Express Unit. The patient would like to pursue with getting the antibiotics in [facility] upon discharge. HERNANDEZ updated IPR Director.
[2022-11-19 17:27] VITALS: BP 120/52; PULSE 90; TEMP 98.5
[2022-11-19 18:30] VITALS: BP_SYST 120
--- NOTE | 2022-11-19 19:28 | NUR ---
PT ASSISTED TO BR WITH WALKER. STEADY GAIT. LT HIP DRSG SATURATED AND DRIPPING. BACK TO BED. CHANGED DRSG 4X4'S AND ABD X2 MICROFOAM TAPE. WET AREA UNDER DRSG RED. LT HIP INCISION EDEMATOUS. AREA AROUND INCISION RED. SUTURES INTACT. NO OPENINGS BETWEEN SUTURES. PT UP TO SINK. PERFORMS OWN HS CARES. CHANGED OWN CLOTHING. READY FOE BED. DECLINES SCD'S AT THIS TIME. ELEVATED LEGS IN BED. CALL LIGHT IN REACH. BED ALARM SET.
--- NOTE | 2022-11-20 01:18 | NUR ---
BED ALARM SOUNDING. PT GOT UP OUT OF BED. TOOK OFF SCD'S AND WENT TO BR. INCONTINENT ON FLOOR. PT CLEANED UP AND ASSISTED BACK TO BED. NO OTHER NEEDS AT THIS TIME.
--- NOTE | 2022-11-20 04:40 | NUR ---
BED ALARM SOUNDING PT QAMB TO BR PER SELF FOR URINARY URGENCY. DID NOT USE WALKER. ENC PT TO TRY TO CALL FOR ASSIST TO BR. PLACED WALKER BY BED FOR SAFETY. DENIES URINARY BURNING. URINE CLEAR YELLOW. BACK TO BED. CALL LIGHT IN REACH. BED ALARM SET.
[2022-11-20 05:06] VITALS: BP 140/64; PULSE 88; TEMP 98.5
[2022-11-20 07:03] VITALS: BP_SYST 140
--- NOTE | 2022-11-20 12:32 | NUR ---
Dr. Calix notified SW that ID made his final recommendations for IV antibiotics. ID is now recommending IV Cefepime, 2 gm, every 8 hours. Colton, with Pharmacy, also contacted this SW. Colton inquired if the infusion company could do a continous infusion through a pump, to make it easier for the patient. HERNANDEZ contacted Amanda at [facility] to update on the IV antibiotic change and if the continuous infusion is an option. Amanda states that she will have to run this through insurance again, to check benefits and figur out, out of pocket costs. She will contact this SW back, once she obtains that information.
--- NOTE | 2022-11-20 13:35 | NUR ---
Followed up w/ pt on her anxiety/relaxation technique. She state the only time of feeling anxious since our visit was when she woke up & didn't know where she was. We talked about this being normal when one is out of their environement. Assisted pt on installing a music wayne on her phone & how to use it for music to help her relax. We then pratcticed some deep progressive relaxation. Provided some education & than talked her through the progression. During the session, she was observed being able to relax as her breathing became deeper. After session, had pt describe how she felt & she was able to feel her muscles tensing up & then relaxing as she released. Provided her w/ handouts to work on over the long weekend. Will continue to follow to provide support.
--- NOTE | 2022-11-20 14:47 | NUR ---
Amanda, at [facility], contacted this SW back with pricing. Amanda states that the Cefepime would cost the patient $270.93 a week and supplies would be $20 a day. Amanda can visit the patient this afternoon, if the patient is wanting to pursue this route. Amanda states that she can also talk to the patient about the continuous infusion pump, if she would want to do this option. HERNANDEZ met with the patient to update on the above. The patient states that she would still want to pursue with going to the [facility]. She then mentioned how if she does come to the [facility], she would have to come 3 times a day. The patient then changed her mind and states that she would prefer to pay the [id number] cost and do the antibiotics at home. HERNANDEZ notified Amanda at [facility]. Amanda states that she will be up to the hospital this afternoon and they will look at getting the infusions delivered to the patient's home on Wednesday. Isidoro will need a hard script faxed to them on Wednesday.
[2022-11-20 17:57] VITALS: BP 153/46; PULSE 97; TEMP 98
[2022-11-20 19:00] VITALS: BP_SYST 153
[2022-11-20 19:25] LABS: URINE BACTERIA None Seen /hpf (NONE SEEN); URINE RBC None Seen /hpf (0-2)
[2022-11-20 19:26] LABS: URINE APPEARANCE Clear (CLEAR/HAZY); URINE BLOOD Negative (NEGATIVE); URINE COLOR Yellow (YELLOW); URINE GLUCOSE Negative (NEGATIVE); URINE KETONE Negative (NEGATIVE); URINE NITRATE Negative (NEGATIVE); URINE PROTEIN(semi-quant) Negative (NEGATIVE); URINE UROBILINOGEN 0.2 E.U/dL (0.2-1.0)
[2022-11-20 19:29] LABS: COLLECTION METHOD CLEAN CATCH
[2022-11-21 05:37] VITALS: BP 153/60; PULSE 90; TEMP 98.1
[2022-11-21 06:43] VITALS: BP_SYST 153
[2022-11-21 07:10] LABS: BASO % 0.7 % (0.0-2.0); EOS # 0.3 K/mm3 (0.0-0.7); EOS % 5.2 % (0.0-4.0); GRAN # 3.9 K/mm3 (1.4-6.5); GRAN % 64.8 % (42.2-75.2); LYMPH # 1.1 K/mm3 (1.2-3.4); LYMPH % 18.7 % (20.0-51.0); MEAN CELL VOLUME 92 fl (80.0-100.0); MEAN CORPUSCULAR HGB CONC 32 g/dl (33.0-37.0); MEAN PLATELET VOLUME 9.3 fl (7.4-10.4); MONO # 0.6 K/mm3 (0.1-0.6); MONO % 10.3 % (1.7-9.3); PLATELET COUNT 393 K/mm3 (130-400); RED BLOOD COUNT 2.76 M/mm3 (4.10-5.30); REDCELL DISTRIBUTION WIDTH-CV 14.8 % (11.5-14.5)
[2022-11-21 07:15] LABS: HEMATOCRIT 25.3 % (37.0-47.0); MEAN CORPUSCULAR HEMOGLOBIN 29 pg (27-31)
[2022-11-21 07:26] LABS: C-REACTIVE PROTEIN 6.63 mg/dL (0.00-0.50); CALCIUM 8.8 mg/dL (8.4-10.2); CREATININE, serum 0.6 mg/dL (0.57-1.11); POTASSIUM 3.3 mmol/L (3.5-4.5)
--- NOTE | 2022-11-21 10:57 | NUR ---
Dialysis Rn rounds: RN was assisting Patient who was on her feet/walking. RN asked Patient if she would like Dialysis Rn visit. Patient declined.
[2022-11-21 17:31] VITALS: BP 100/68; PULSE 97; TEMP 98.6
[2022-11-21 19:01] VITALS: BP_SYST 100
--- NOTE | 2022-11-21 21:00 | NUR ---
PT RESTING IN BED. C/O LEVEL 12/05 LT HIP PAIN. SEE MAR FOR ROXICODONE GIVEN. PT REPORTS FREQUENT VOIDS. UA NEG. LT HIP BULKY DRSG CDI. CALL LIGHT IN REACH. BED ALARM SET.
[2022-11-22 06:02] VITALS: BP 152/69; PULSE 96; TEMP 97.9
[2022-11-22 06:38] VITALS: BP_SYST 152
--- NOTE | 2022-11-22 11:52 | NUR ---
Rag Cutting Machine Feeder rounds: Patient is waiting for her Sister to visit. Accepted a Rag Cutting Machine Feeder visit. Patient recounted how she ended up in the hospital and the various turns that her care has taken from the surgery center to the rehab. Patient spoke about living alone and possibly getting home health when she is discharged later this week. Patient spoke of her two cats and helpful neighbors who have been caring for them. Rag Cutting Machine Feeder prayed for healing; for the opportunity to go home this week; and gave thanks for all the people in the Patient's life who are helping her.
[2022-11-22 17:37] VITALS: BP 141/70; PULSE 92; TEMP 98.5
--- NOTE | 2022-11-22 18:00 | NUR ---
PATIENT ALERT AND ORIENTED X4. PICC LINE TO RIGHT UPPER ARM. ON IV ANTIBIOTICS EVERY 8 HOURS. PATIENT HAS WALKED THROUGH OUT THE DAY. PRN BRIDGER FOR PAIN. DRESSING TO LEFT HIP CHANGED TODAY. 11/22. MINIMAL DRAINAGE NOTICED.
[2022-11-22 19:00] VITALS: BP_SYST 141
--- NOTE | 2022-11-22 21:00 | NUR ---
PT RESTING IN BED. A&0X4. BUT VERY MILD COGNITIVE DYSFUNCTION W/ THOUGHT PROCESS AND RATIONALIZATIONS. SEE MAR FOR TYLENOL GIVEN FOR LT HIP PAIN. REFUSED SCD'S AT THIS TIME. PT REPORTS STILL HAVING FREQUENT VOIDS. S/S UTI. CALL LIGHT IN REACH. BED ALARM SET.
--- NOTE | 2022-11-22 22:30 | NUR ---
BED ALARM SOUNDING. FOUND PT SITTING ON SIDE OF BED. NEEDING TO GO TO BR. ENC PT TO USE CALL LIGHT AND WAIT FOR ASSIST FOR SAFETY. PT AGREED.
--- NOTE | 2022-11-23 00:45 | NUR ---
BED ALARM SOUNDING. FOUND PT SITTING ON SIDE OF BED. REMINDED PT TO USE CALL LIGHT AND WAIT FOR STAFF TO COME IN AND ASSIST. THIS IS SECONG TIME PT HAS SET OFF BED ALARM. ASSISTED TO BR W/ WALKER. VOIDED. PT ABLE TO MANAGE TOILETING TASKS PER SELF. BACK TO BED. ABLE TO LIFT FEET INTO BED PER SELF. BED ALARM SET. CALL LIGHT IN REACH.
[2022-11-23 05:19] VITALS: BP 151/67; PULSE 84; TEMP 97.9
[2022-11-23 07:00] VITALS: BP_SYST 151
--- NOTE | 2022-11-23 09:19 | NUR ---
PATIENT ALERT AND ORIENTED X4. VSS. PATIENT HERE FOR LEFT HIP I&D, HARDWARE EXCHANGE. PICC TO RIGHT UPPER ARM, SINGLE LUMEN, FLUSHES WELL, GOOD BLOOD RETURN. PATIENT REPORTS PAIN 7/10, REQUESTS PAIN MEDICATION. INCISION TO LEFT HIP, 4X4, ABD, FOAM TAPE DRESSING INTACT. ASSESSMENT PERFORMED. AM MEDS ADMINISTERED. PATIENT RESTING IN BED, WAITING ON THERAPY. CALL LIGHT IN REACH. BED ALARM ACTIVATED.
--- NOTE | 2022-11-23 09:58 | NUR ---
DRESSING CHANGED WITH DIFFERENT MATERIALS TODAY. FOAM TAPE APPEARS TO BE BOTHERING PATIENT'S SKIN. USED 4X4, ABD, AND METAPOR TAPE.
[2022-11-23 17:25] VITALS: BP 146/58; PULSE 91; TEMP 98.6
--- NOTE | 2022-11-23 19:06 | NUR ---
RECEIVED CHANGE OF SHIFT REPORT FROM DAY SHIFT RN.
--- NOTE | 2022-11-24 00:30 | NUR ---
PATIENT REPOSITIONS SELF IN BED, DENIES ANY NEEDS AT THIS TIME. EXIT ALARM ON, CALL LIGHT IN REACH.
[2022-11-24 05:22] VITALS: BP 167/66; PULSE 92; TEMP 98.6
[2022-11-24 06:48] LABS: BASO # 0.1 K/mm3 (0.0-0.2); BASO % 1.2 % (0.0-2.0); EOS # 0.5 K/mm3 (0.0-0.7); EOS % 6.5 % (0.0-4.0); GRAN # 5.3 K/mm3 (1.4-6.5); GRAN % 63.7 % (42.2-75.2); LYMPH # 1.5 K/mm3 (1.2-3.4); LYMPH % 17.6 % (20.0-51.0); MEAN CELL VOLUME 93 fl (80.0-100.0); MEAN CORPUSCULAR HGB CONC 31 g/dl (33.0-37.0); MEAN PLATELET VOLUME 9.2 fl (7.4-10.4); MONO # 0.8 K/mm3 (0.1-0.6); RED BLOOD COUNT 3.32 M/mm3 (4.10-5.30); REDCELL DISTRIBUTION WIDTH-CV 15.1 % (11.5-14.5)
[2022-11-24 06:49] LABS: HEMATOCRIT 30.7 % (37.0-47.0); HEMOGLOBIN 9.6 g/dl (12.5-16.0); MEAN CORPUSCULAR HEMOGLOBIN 29 pg (27-31); PLATELET COUNT 532 K/mm3 (130-400)
[2022-11-24 06:58] VITALS: BP_SYST 167
--- NOTE | 2022-11-24 06:59 | NUR ---
Shift report received from night cleaner RN. Pt awake and resting in bed. Denies pain or other needs. Lab called for delta check on platelets. This morning, result is 532, was previously 393 on 11/21. Hospitalist notified. Per night RN, blood spec was obtained from [facility] per protocol. Pt denies other needs. Call light is in her reach. Bed alarm is on.
[2022-11-24 07:10] LABS: C-REACTIVE PROTEIN 2.8 mg/dL (0.00-0.50); CALCIUM 9.2 mg/dL (8.4-10.2); CREATININE, serum 0.63 mg/dL (0.57-1.11); POTASSIUM 3.4 mmol/L (3.5-4.5)
[2022-11-24 07:14] LABS: ERYTHROCYTE SEDIMENTATION RATE 107 mm/hr (0-30)
--- NOTE | 2022-11-24 07:59 | NUR ---
Pt is sitting up in bed eating breakfast independently. She is eager to discharge home today but is concerned about the schedule for IV abx. Reassured pt that she will receive instructions once discharge orders are entered. She verbalized understanding. Denies other needs. Call light is in her reach. Bed alarm is on.
--- NOTE | 2022-11-24 09:52 | NUR ---
Pt expressing nervousness about discharging home and possibly having to self-administer an IV abx. Called Dr. White to discuss alternatives. No answer. Left a voice mail to return my phone on the [facility] nurse phone.
--- NOTE | 2022-11-24 13:36 | NUR ---
Has lack of transportation kept you from medical appts, meetings, work, or from getting things needed for daily living? NO How often do you feel lonely or isolated from those around you? SOMETIMES Over the past 5 days, how much of the time has pain made it hard for you to sleep? OCCASIONALLY Over the past 5 days, how often have you limited your participation in therapy due to pain? RARELY/NOT AT ALL Over the past 5 days, how often have you limited your day-to-day activities because of pain? RARELY/NOT AT ALL
[2022-11-24] MEDS ORDERED: ELIQUIS 5MG PO (14:39)
[2022-11-24] MEDS ORDERED: FERROUS SU325 MG/TAB PO (14:39)
[2022-11-24] MEDS ORDERED: DUO-KAPS1 CAP PO (14:42)
[2022-11-24] MEDS ORDERED: VITAMIN C500 MG PO (14:42)
[2022-11-24] MEDS ORDERED: ROXICODONE 55 MG/TAB PO (14:42)
[2022-11-24] MEDS ORDERED: SENOKOT S 50 MG1 TAB PO (14:42)
[2022-11-24] MEDS ORDERED: MAXIPIMEIVSOL IV (14:56)
--- NOTE | 2022-11-24 15:14 | NUR ---
Telehealth visit conducted with Dr. Jordan White, Infectious Disease. Patient consented to visit. Patients nurse was present for visit. Telecommunication initiated without any difficulties during exam. All questions were answered by Dr. White
--- NOTE | 2022-11-24 16:47 | NUR ---
Survey Director and HERNANDEZ student met with Patient at bedside to follow-up with treatment goals and discharge planning. Patient reports to have progressed in treatment but is anxious to go home with IV antibiotics. SW collaborated with Patient to review discharge plan of going home with home health services to be scheduled at the time of the first home dose of IV antibiotics. HERNANDEZ has coordinated with Tia with [facility] to meet Patient at 0800 in AM to review education on self administered IV antibiotics prior to discharge. Patient agrees to this discharge plan and states that she will coordinate with family and friends for transport home. HERNANDEZ contacted Duncan with [facility] to coordinate for home health services to meet with Patient at home for assistance with first IV dose. Duncan reports that she can schedule Patient's intake at 1500 and nursing staff will assist with administration at the end of the intake.
[2022-11-24 16:53] VITALS: BP 149/57; PULSE 89; TEMP 99.4
--- NOTE | 2022-11-24 19:00 | NUR ---
RECEIVED CHANGE OF SHIFT REPORT FROM DAY SHIFT RN. PATIENT RESTING IN BED, EXIT ALARM ON, CALL LIGHT IN REACH, WITH NO NEEDS REPORTED DURING REPORT.
--- NOTE | 2022-11-25 00:57 | NUR ---
PRIOR TO HS, PATIENT COMPLAINED OF ITCHING UNDER MEDIPORE TAPE, REQUESTED TO HAVE TAPE CHANGED OUT. REMOVED TAPE REQUESTED, ABD/GAUZE DRSG INTACT WITH NO DRAINAGE OBSERVED, APPLIED SKIN PREP TO AREA APRPOX 1 INCH WIDE AROUND DRSG AND APPLIED NEW MEDIPORE STRIPS. PATIENT VERBALIZED SATISFACTION WITH TAPE CHANGE, NO OTHER NEEDS REPORTED.
[2022-11-25 04:10] VITALS: BP 148/73; PULSE 99; TEMP 98.1
[2022-11-25 06:45] VITALS: BP_SYST 148
--- NOTE | 2022-11-25 06:46 | NUR ---
Shift report received from fast food shift lead RN. Pt awake and resting supine in bed. Denies pain or additional needs. Call light is in reach. Bed alarm is on.
--- NOTE | 2022-11-25 06:48 | NUR ---
CHANGE OF SHIFT REPORT GIVEN TO DAY SHIFT RNVASYL.
--- NOTE | 2022-11-25 08:19 | NUR ---
Home Health nurse at the bedside for IV medication administration teaching.
[2022-11-25] MEDS ORDERED: MAXIPIMEIVSOL IV (08:48)
--- NOTE | 2022-11-25 10:45 | NUR ---
DC Summary/Instructions reviewed with the pt. She had no further questions. She plans on her sister coming to pick her up around noon for discharge to home. Belongings gathered by the pt. Valuables are in her possession (cell phone, purse).
--- NOTE | 2022-11-25 11:03 | NUR ---
Pt escorted off unit by wheelchair and seatbelted for ride home
--- NOTE | 2022-11-26 13:33 | NUR ---
Discharge QIM scores were reviewed by the team. Code of 6 chosen for toileting hygiene was determined by team discussion to be the most usual performance for this patient during the discharge assessment period. Code of 6 chosen for toilet transfers was determined by team discussion to be the most usual performance for this patient during the discharge assessment period. Code of 6 chosen for sit to lying was determined by team discussion to be the most usual performance for this patient during the discharge assessment period. Code of 6 chosen for lying to sitting was determined by team discussion to be the most usual performance for this patient during the discharge assessment period. Code of 6 chosen for sit to stand was determined by team discussion to be the most usual performance for this patient during the discharge assessment period. Code of 6 chosen for chair to bed was determined by team discussion to be the most usual performance for this patient during the discharge assessment period.--Yvonne Mortensen, PD
== END 2022-11-25 11:01 | disposition home health service (06) | DRG 949 ==
PROVIDERS: Internal Medicine; Orthopaedic Surgery; Physician Assistant; ADMIT Physical Medicine & Rehabilitation Sports Medicine
DX: T84.52XD Infection and inflammatory reaction due to internal left hip prosthesis, subsequent encounter (principal); I74.2 Embolism and thrombosis of arteries of the upper extremities; D64.89 Other specified anemias; M54.16 Radiculopathy, lumbar region; I10 Essential (primary) hypertension; E03.9 Hypothyroidism, unspecified; K58.9 Irritable bowel syndrome, unspecified; F41.9 Anxiety disorder, unspecified; F32.A Depression, unspecified; Z74.09 Other reduced mobility; R26.89 Other abnormalities of gait and mobility; Z96.642 Presence of left artificial hip joint; Z79.2 Long term (current) use of antibiotics; Z87.891 Personal history of nicotine dependence; Z79.82 Long term (current) use of aspirin; Z79.899 Other long term (current) drug therapy; Z91.048 Other nonmedicinal substance allergy status; S20.222A Contusion of left back wall of thorax, initial encounter
CPT/HCPCS: J0692; J0696; J3370; J7050

== ENCOUNTER → 2023-11-01 | Outpatient (CLI) | payer MEDICARE ==
[~2023-11-01] MED LIST changes: +CUBICIN 500MG500 MG IV; +DUO-KAPS1 CAP PO; +ELIQUIS 5MG PO; +FERROUS SU325 MG/TAB PO; +INVANZ INJ1 G/VIAL IV; +MAXIPIMEIVSOL IV; +ROXICODONE 55 MG/TAB PO; +VITAMIN C500 MG PO
== END ==
LOC: COL.RAD 09:11
DX: M25.552 Pain in left hip (principal); Z96.642 Presence of left artificial hip joint; G89.29 Other chronic pain
CPT/HCPCS: A9503-JZ

== ENCOUNTER 2024-02-28 10:54 | Emergency (ER) | payer MEDICARE ==
[~2024-02-28] VITALS: Ht 162.6 cm; Wt 145.5 kg
[2024-02-28 10:56] VITALS: TEMP 98.2
[2024-02-28] MEDS ORDERED: NS 1,000 ML IV ONE (11:30)
[2024-02-28] MEDS ORDERED: TYLENOL SU650 MG/SUP RC (11:55)
[2024-02-28] MEDS ORDERED: ASPIRIN 81M81 MG/TA2 PO (11:55)
[2024-02-28] MEDS ORDERED: DULCOLAX S10 MG/SUPP RC (11:56)
[2024-02-28 12:12] LABS: ALBUMIN 1.8 g/dL (3.4-4.8); BILIRUBIN,TOTAL 0.2 mg/dL (0.2-1.2); CALCIUM 8.2 mg/dL (8.4-10.2); CREATININE, serum 0.73 mg/dL (0.57-1.11); MEAN CELL VOLUME 91 fl (80.0-100.0); MEAN CORPUSCULAR HGB CONC 31 g/dl (33.0-37.0); MEAN PLATELET VOLUME 9.6 fl (7.4-10.4); PLATELET COUNT 528 K/mm3 (130-400); POTASSIUM 4.2 mEq/L (3.5-4.5); RED BLOOD COUNT 2.87 M/mm3 (4.10-5.30); REDCELL DISTRIBUTION WIDTH-CV 16.5 % (11.5-14.5); TOTAL PROTEIN 6.1 g/dl (6.2-8.1)
[2024-02-28 12:14] LABS: HEMATOCRIT 26.2 % (37.0-47.0); MEAN CORPUSCULAR HEMOGLOBIN 28 pg (27-31)
[2024-02-28 12:47] LABS: BAND 18 % (0-10); LYMPHOCYTE 37 % (20.0-51.0); NEUTROPHILS 35 % (42.0-75.2); PLATELET ESTIMATE INCREASED (NORMAL)
[2024-02-28 12:48] LABS: ANISOCYTOSIS 2+; HYPOCHROMIA 1+
[2024-02-28] MEDS ORDERED: BENTYL 10MG10 MG/CAP PO (13:05)
[2024-02-28] MEDS ORDERED: DOXYCYCLINE 10100 MG PO (13:06)
[2024-02-28] MEDS ORDERED: FLONASEALLERGY NS (13:07)
[2024-02-28] MEDS ORDERED: FOLIC ACID 11 MG/TA1 PO (13:08)
[2024-02-28] MEDS ORDERED: NEURONTIN300 MG/CAP PO (13:12)
[2024-02-28] MEDS ORDERED: MIRALAX119G PO (13:12)
[2024-02-28] MEDS ORDERED: ROXICODONE 55 MG/TAB PO (13:13)
[2024-02-28] MEDS ORDERED: ZANAFLEX2 MG PO (13:14)
[2024-02-28] MEDS ORDERED: ULTRAM 50MG TAB50 MG PO (13:14)
[2024-02-28] MEDS ORDERED: VANCOCIN H125 MG/CAP PO (13:15)
[2024-02-28 16:00] VITALS: BP 168/56; PULSE 96
== END 2024-02-28 16:10 | disposition short-term general hospital (02) ==
LOC: COL.ER 10:54
PROVIDERS: Personal Emergency Response Attendant
DX: K92.1 Melena (principal); D64.9 Anemia, unspecified; D72.825 Bandemia; R53.1 Weakness; Z79.01 Long term (current) use of anticoagulants
CPT/HCPCS: J7030